=== PATIENT | female | born 1985 | race Caucasian/White ===

== ENCOUNTER 2018-06-17 14:38 | Emergency (ER) | payer OTHER ==
--- NOTE | 2018-06-17 14:43 | PDOC ---
Rapid Medical Evaluation Time Seen by Provider: 06/17/18 14:41 Medical Evaluation: 06/17/18 14:41 I have performed a brief in-person evaluation of this patient. The patient presents with a chief complaint of:epigastric pain w/ n/v x 3 days Pertinent physical exam findings:stable but manav uncomfortable w/ +ttp to epigastrium I have ordered the following:labs/urine The patient will proceed to the ED for further evaluation. Discharge Disposition - Diagnosis Epigastric abdominal pain - Referrals - Patient Instructions - Post Discharge Activity
[2018-06-17 14:45] VITALS: TEMP 98.2; BMI 24.7
[2018-06-17] MEDS ORDERED: ONDANSETRON 4 MG/2 ML VIAL IVPUSH ONE (15:25)
[2018-06-17] MEDS ORDERED: SODIUM CHLORIDE 1,000 ML IV STA (15:25)
[2018-06-17] MEDS ORDERED: PANTOPRAZOLE SODIUM 40 MG in SODIUM CHLORIDE 100 ML IVPB ONE (15:25)
[2018-06-17] MEDS ORDERED: KETOROLAC TROMETHAMINE 30 MG/1 ML VIAL IVPUSH ONE (15:25)
[2018-06-17 15:29] LABS: BASO % 0.4 % (0-2.0); EOS % 1.7 % (0-4.5); HEMATOCRIT 37.9 % (32.4-45.2); HEMOGLOBIN 12.5 GM/dL (10.7-15.3); MCH 29.2 pg (25.7-33.7); MCHC 32.9 g/dl (32.0-36.0); MEAN CELL VOLUME 88.7 fl (80-96); MEAN PLT VOLUME 8.5 fl (7.5-11.1); MONO % 4.7 % (3.8-10.2); NEUT % 74.2 % (42.8-82.8); PLATELET COUNT 269 K/MM3 (134-434); RBC 4.27 M/mm3 (3.60-5.2); RDW 14.8 % (11.6-15.6); WHITE BLOOD COUNT 8.6 K/mm3 (4.0-10.0)
[2018-06-17] MEDS ORDERED: KETOROLAC TROMETHAMINE 30 MG/1 ML VIAL ONE (15:40)
[2018-06-17] MEDS ORDERED: PANTOPRAZOLE SODIUM 0 MG/0 ML BAG IVPB ONE (15:40)
[2018-06-17] MEDS ORDERED: ONDANSETRON 4 MG/2 ML VIAL ONE (15:41)
[2018-06-17] MEDS ORDERED: PANTOPRAZOLE SODIUM 40 MG/100 ML BAG IVPB ONE (15:42)
[2018-06-17 15:48] LABS: BILIRUBIN,TOTAL 0.5 mg/dL (0.2-1); CALCIUM 8.5 mg/dL (8.5-10.1); CREATININE 0.5 mg/dL (0.55-1.3); POTASSIUM 4.1 mmol/L (3.5-5.1); TOT PROT 7.5 g/dl (6.4-8.2)
--- NOTE | 2018-06-17 16:16 | PDOC ---
History of Present Illness - General Chief Complaint: Pain, Acute Stated Complaint: ABD PAIN/VOMITING Time Seen by Provider: 06/17/18 14:41 History Source: Patient Exam Limitations: No Limitations - History of Present Illness Travel History: No Initial Comments: 06/17/18 16:00 33-year-old female with no past medical history presents to ED with complaints of epigastric pain for the past 2 days now associated nausea vomiting. Patient states mild generalized weakness but denies fever, chills, headache, chest pain , shortness of breath urinary or bowel complaints. Patient also denies irregular menses. Timing/Duration: reports: intermittent Quality: reports: mild, cramping, sharpness Abdominal Pain Onset Location: reports: epigastric Pain Radiation: reports: no radiation Activities at Onset: reports: none Aggravating Factors: improves with: Eating Alleviating Factors: improves with: None Past History - Travel Traveled outside of the country in the last 30 days: No Close contact w/someone who was outside of country & ill: No - Past Medical History Allergies/Adverse Reactions: Allergies Allergy/AdvReac Type Severity Reaction Status Date / Time No Known Allergies Allergy Verified 06/17/18 14:41 Home Medications: Ambulatory Orders Ondansetron HCl [Zofran] 4 mg PO TID PRN #12 tablet 06/17/18 Pantoprazole Sodium [Protonix] 40 mg PO DAILY #30 tablet. 06/17/18 COPD: No - Immunization History Immunization Up to Date: Yes - Suicide/Smoking/Psychosocial Hx Smoking History: Never smoked Hx Alcohol Use: No Drug/Substance Use Hx: No Lives with/in: spouse/SO Review of Systems - Review of Systems Able to Perform ROS?: Yes Constitutional: Yes: Loss of Appetite, Weakness HEENTM: No: Symptoms Reported Respiratory: No: Symptoms reported Cardiac (ROS): No: Symptoms Reported ABD/GI: Yes: Nausea, Poor Appetite, Poor Fluid Intake, Vomiting, Abdominal cramping. No: Constipated, Diarrhea : No: Symptoms Reported Musculoskeletal: No: Symptoms Reported Integumentary: No: Symptoms Reported Neurological: No: Symptoms reported *Physical Exam - Vital Signs Last Vital Signs Temp Pulse Resp BP Pulse Ox 98.2 F 78 18 113/65 100 06/17/18 14:42 06/17/18 14:42 06/17/18 14:42 06/17/18 14:42 06/17/18 14:42 - Physical Exam General Appearance: Yes: Nourished, Appropriately Dressed. No: Apparent Distress HEENT: positive: TMs Normal, Pharynx Normal. negative: Pale Conjunctivae Neck: positive: Normal Thyroid, Supple Respiratory/Chest: positive: Lungs Clear, Normal Breath Sounds. negative: Respiratory Distress, Accessory Muscle Use Cardiovascular: positive: Regular Rhythm, Regular Rate. negative: Murmur Gastrointestinal/Abdominal: positive: Soft, Tenderness (epigastric) Musculoskeletal: negative: CVA Tenderness Integumentary: positive: Normal Color, Warm, Moist Neurologic: positive: Motor Strength 5/5 (ambulatory) ED Treatment Course - LABORATORY CBC & Chemistry Diagram: 06/17/18 15:05 06/17/18 15:05 - ADDITIONAL ORDERS Additional order review: Laboratory Results 06/17/18 15:05 Sodium 129 L Potassium 4.1 Chloride 98 Carbon Dioxide 23 Anion Gap 8 BUN 17 Creatinine 0.5 L Est GFR (CKD-EPI)AfAm 147.38 Est GFR (CKD-EPI)NonAf 127.16 Random Glucose 104 Calcium 8.5 Total Bilirubin 0.5 AST 29 ALT 66 H Alkaline Phosphatase 101 Total Protein 7.5 Albumin 4.0 Lipase 233 06/17/18 15:05 RBC 4.27 MCV 88.7 MCHC 32.9 RDW 14.8 MPV 8.5 Neutrophils % 74.2 Lymphocytes % 19.0 Monocytes % 4.7 Eosinophils % 1.7 Basophils % 0.4 - Medications Given in the ED: ED Medications Discontinued Medications Generic Name Dose Route Start Last Admin Trade Name Freq PRN Reason Stop Dose Admin Pantoprazole Sodium 40 mg/ 100 mls @ 200 mls/hr 06/17/18 15:25 06/17/18 16:00 Sodium Chloride IVPB 06/17/18 15:54 200 mls/hr ONCE ONE Administration Ketorolac Tromethamine 30 mg 06/17/18 15:25 06/17/18 15:50 Toradol Injection - IVPUSH 06/17/18 15:26 30 mg ONCE ONE Administration Ondansetron HCl 4 mg 06/17/18 15:25 06/17/18 15:55 Zofran Injection IVPUSH 06/17/18 15:26 4 mg ONCE ONE Administration Medical Decision Making - Medical Decision Making 06/17/18 16:00 Chief complaint: Epigastric pain for the past few days now associated with nausea and vomiting. No meds taken except for Motrin which aggravated her stomach Exam. Patient epigastric tenderness vital signs stable Plan, IV fluids, antiemetics, Toradol protonic's labs and urine ordered 06/17/18 17:30 Laboratory Tests 06/17/18 06/17/18 06/17/18 15:05 15:05 15:19 WBC 8.6 Hgb 12.5 Hct 37.9 Neutrophils % 74.2 Sodium 129 L Potassium 4.1 Chloride 98 Carbon Dioxide 23 Anion Gap 8 BUN 17 Creatinine 0.5 L Random Glucose 104 Calcium 8.5 Total Bilirubin 0.5 AST 29 ALT 66 H Alkaline Phosphatase 101 Total Protein 7.5 Albumin 4.0 Lipase 233 Urine HCG, Qual Negative 06/17/18 17:34 UA results pending States feeling better. Patient eating zohreh crackers and juice and a sandwich will discharge home and Zofran *DC/Admit/Observation/Transfer Diagnosis at time of Disposition: Epigastric abdominal pain - Discharge Dispostion Disposition: HOME Condition at time of disposition: Improved - Prescriptions Prescriptions: Ondansetron HCl [Zofran] 4 mg PO TID PRN #12 tablet PRN Reason: Nausea And/Or Vomiting Pantoprazole Sodium [Protonix] 40 mg PO DAILY #30 tablet.dr - Referrals Referrals: Reza Navarro MD [Staff Physician] - - Patient Instructions Printed Discharge Instructions: DI for Epigastric Pain Additional Instructions: Eat bland food for the next 48 hours and advance as tolerated. Please take Zofran as needed for nausea. Stay well-hydrated and if symptoms return or worsen please go to the nearest ER. - Post Discharge Activity
[2018-06-17 18:36] VITALS: BP 106/58; PULSE 79
== END 2018-06-17 18:38 | disposition home or self-care (01) ==
LOC: JER 14:38
PROC: 3E0333Z Introduction of Anti-inflammatory into Peripheral Vein, Percutaneous Approach (ICD-10-PCS; principal; 2018-06-17)
PROC: 3E033GC Introduction of Other Therapeutic Substance into Peripheral Vein, Percutaneous Approach (ICD-10-PCS; 2018-06-17)
PROC: 3E0337Z Introduction of Electrolytic and Water Balance Substance into Peripheral Vein, Percutaneous Approach (ICD-10-PCS; 2018-06-17)
DX: R10.13 Epigastric pain (principal)
CPT/HCPCS: 36415; 80053; 81003; 81015; 83690; 84703; 85025; 99282-25; J7030

== ENCOUNTER 2020-06-18 18:22 | Emergency (ER) | payer OTHER ==
[2020-06-18 18:37] VITALS: BP 93/62; PULSE 97; TEMP 99.5; BMI 26.5
[2020-06-18] MEDS ORDERED: IBUPROFEN 600 MG TABLET (FP) PO ONE ×2 (19:29→20:29)
[2020-06-18] MEDS ORDERED: CEPHALEXIN MONOHYDRATE 500 MG CAPSULE (UD) PO ONE (21:39)
[2020-06-18] MEDS ORDERED: CEPHALEXIN MONOHYDRATE 500 MG CAPSULE (UD) ONE (21:56)
== END 2020-06-18 22:34 | disposition home or self-care (01) ==
LOC: JERFT 18:22 → JER 18:22 → JERFT 22:34
DX: N64.4 Mastodynia (principal)
CPT/HCPCS: 76642-TC-RT; 99284-25